=== PATIENT | female | born 1960 | race Hispanic/Latino ===

== ENCOUNTER 2020-08-19 19:21 | Emergency (ER) | payer SELFPAY ==
[~2020-08-19 19:21] MED LIST: TETANUS/DIPHTHERIA TOXOID [ADULT] 0.5 ML VIAL IM ONE
== END 2020-08-19 23:44 | disposition home or self-care (01) ==
LOC: EDH 19:21
DX: S01.112A Laceration without foreign body of left eyelid and periocular area, initial encounter (principal); S16.1XXA Strain of muscle, fascia and tendon at neck level, initial encounter; W01.198A Fall on same level from slipping, tripping and stumbling with subsequent striking against other object, initial encounter; Y93.89 Activity, other specified; Y92.89 Other specified places as the place of occurrence of the external cause; Y99.8 Other external cause status
CPT/HCPCS: 12052; 70450; 72125; 90471; 90714

== ENCOUNTER 2020-08-26 18:38 | Emergency (ER) | payer SELFPAY | END 2020-08-26 19:06 | disposition home or self-care (01) | LOC: EDH 18:38 | DX: S01.112D Laceration without foreign body of left eyelid and periocular area, subsequent encounter (principal); X58.XXXD Exposure to other specified factors, subsequent encounter | CPT/HCPCS: 99281 ==

== ENCOUNTER 2021-10-02 12:12 | Emergency (ER) | payer OTHER, SELFPAY ==
[~2021-10-02] VITALS: Ht 152.4 cm; Wt 68.0 kg
[~2021-10-02 12:12] MED LIST changes: +DOCU-116 PO; +METF-444 PO; +ONDA4TAB4 PO; +PSYL0.5210 PO; -TETANUS/DIPHTHERIA TOXOID [ADULT] 0.5 ML VIAL IM ONE
[2021-10-02] MEDS ORDERED: LACTATED RINGERS 1000ML 1,000 ML IV ONE (13:00)
[2021-10-02] MEDS ORDERED: ACETAMINOPHEN 325 MG TAB PO ONE (13:00)
[2021-10-02] MEDS ORDERED: ZOSYN 3.375GM +NS 50ML IV ONE (13:00)
[2021-10-02] MEDS ORDERED: ONDANSETRON 4MG INJ IVP ONE (13:00)
[2021-10-02 13:08] LABS: APPEARANCE,URINE Cloudy (CLEAR); BILIRUBIN,URINE Negative (NEGATIVE); COLOR,URINE Dark Yellow (YELLOW); GLUCOSE, URINE (UA) 500 mg/dL (NEGATIVE); KETONES,URINE 40 mg/dL (NEGATIVE); LEUKOCYTE ESTERASE ,URINE Moderate (NEGATIVE); NITRATE,URINE Negative (NEGATIVE); OCCULT BLOOD,URINE Negative (NEGATIVE); PROTEIN,URINE POS 1+ mg/dL (NEGATIVE)
[2021-10-02 13:16] LABS: AMPHET/METH SCREEN,URINE NEGATIVE (NEGATIVE); BARBITURATE SCREEN, URINE NEGATIVE (NEGATIVE); BENZODIAZEPINES SCREEN,URINE NEGATIVE (NEGATIVE); CANNABINOID SCREEN,URINE NEGATIVE (NEGATIVE); COCAINE SCREEN,URINE NEGATIVE (NEGATIVE); OPIATE SCREEN,URINE NEGATIVE (NEGATIVE); PHENCYCLIDINE SCREEN,URINE NEGATIVE (NEGATIVE)
[2021-10-02 13:26] LABS: BASOPHILS % (AUTO) 0.5 % (0.0-5.0); EOSINOPHILS % (AUTO) 0.1 % (0.0-8.0); HEMATOCRIT 40.3 % (36-48); LYMPHOCYTES % (AUTO) 21.4 % (21.0-51.0); MEAN CORPUSCULAR HEMOGLOBIN 31.8 pg (27.0-33.0); NEUTROPHILS % (AUTO) 70.7 % (40.0-77.0); PLATELET COUNT (AUTO) 310 K/uL (130-400); RED BLOOD CELL COUNT(AUTO) 4.43 MIL/uL (4.00-5.50); RED CELL DISTRIBUTION WIDTH 11.7 % (11.0-15.5); WHITE BLOOD COUNT (AUTO) 7.4 K/uL (4.8-10.8)
[2021-10-02 13:35] LABS: CREATININE 0.8 mg/dL (0.5-1.5); POTASSIUM 3.8 mmol/L (3.5-5.1)
[2021-10-02 13:39] LABS: BILIRUBIN,TOTAL 0.7 mg/dL (0.2-1.0); TOTAL PROTEIN, SERUM 8.2 g/dL (6.0-8.3)
[2021-10-02] MEDS ORDERED: IOHEXOL-350 75 ML VIAL IV ONE (13:44)
[2021-10-02 13:50] LABS: BACTERIA,URINE Many /HPF (None Seen); RBC,URINE 0-1 /HPF (0-1); WBC,URINE 51-100 /HPF (0-1)
[2021-10-02 13:51] LABS: SQUAMOUS EPITHELIAL CELL,UR Rare /HPF (0-2)
[2021-10-02] MEDS ORDERED: ACET-3194 PO (14:16)
[2021-10-02] MEDS ORDERED: CEPH500C2 PO (14:16)
[2021-10-02] MEDS ORDERED: ONDA4TAB4 PO (14:16)
[2021-10-02] MEDS ORDERED: PANT40TA54 PO (14:16)
[2021-10-02] MEDS ORDERED: DICY20TA2 PO (14:16)
[2021-10-02] MEDS ORDERED: CEFTRIAXONE 1G VIAL IVP ONE (14:30)
[2021-10-02 16:50] VITALS: BP 143/75
== END 2021-10-02 17:06 | disposition home or self-care (01) ==
LOC: EDH 12:12
DX: K52.9 Noninfective gastroenteritis and colitis, unspecified (principal); N39.0 Urinary tract infection, site not specified; K80.20 Calculus of gallbladder without cholecystitis without obstruction; Z20.822 Contact with and (suspected) exposure to COVID-19; E11.9 Type 2 diabetes mellitus without complications; Z79.84 Long term (current) use of oral hypoglycemic drugs; Z79.899 Other long term (current) drug therapy
CPT/HCPCS: 36415; 71045; 74177; 76705; 80053; 80305; 81001; 82550; 83605; 83690; 84484; 85025; 87040 ×2; 87077; 87088; 87186; 87635; 93005; 96365; 96375; 99285; C9803; J0696; J2405; J2543; Q9967